=== PATIENT | male | born 1990 | race Caucasian/White ===

== ENCOUNTER 2017-12-01 12:46 | Emergency (ER) | payer MEDICAID | END 2017-12-02 11:14 | disposition home or self-care (01) | LOC: E/R 12-02 11:14 | DX: H60.312 Diffuse otitis externa, left ear (principal); H65.02 Acute serous otitis media, left ear; J00 Acute nasopharyngitis [common cold] | CPT/HCPCS: 99283; Z7502 ==

== ENCOUNTER 2018-02-27 10:34 | Inpatient (IN) | payer MEDICAID ==
[2018-02-27 11:50] LABS: WHITE BLOOD COUNT 28.9 10^3/ul (4.8-10.8)
[2018-02-27 11:50] LABS: ABNORMAL IP MESSAGE 1; HEMATOCRIT 44.4 % (42.0-52.0); HEMOGLOBIN 15.6 g/dl (14.0-18.0); MEAN CORPUSCULAR HEMOGLOBIN 31.6 pg (29.0-33.0); MEAN CORPUSCULAR HGB CONC 35.1 g/dl (32.0-37.0); MEAN CORPUSCULAR VOLUME 90.1 fl (82.0-101.0); MEAN PLATELET VOLUME 11.5 fl (7.4-10.4); PLATELET COUNT 265 10^3/UL (140-415); POSITIVE DIFF @See below; RED BLOOD COUNT 4.93 10^6/ul (4.70-6.10); RED CELL DISTRIBUTION WIDTH 12.4 % (11.5-14.5)
[2018-02-27] MEDS: IBUPROFEN 800 MG TAB PO (11:51)
[2018-02-27] MEDS: ACETAMINOPHEN 325 MG TAB PO (11:51)
[2018-02-27] MEDS: PIPER-TAZO 3.375 GM IV (PMX) 100 ML IVPB ×2 (11:52→18:58)
[2018-02-27 11:53] LABS: ADD MAN DIFF? YES
[2018-02-27] MEDS: SODIUM CHLORIDE 0.9% 1L BAG IV* (11:56)
[2018-02-27 12:10] LABS: ALANINE AMINOTRANSFERASE 109 IU/L (13-69); ALBUMIN 4.8 g/dl (3.3-4.9); ALBUMIN/GLOBULIN RATIO 1.77; ALKALINE PHOSPHATASE 60 IU/L (42-121); AMYLASE 60 U/L (11-123); ANION GAP 19 (8-16); ASPARTATE AMINO TRANSFERASE 50 IU/L (15-46); BILIRUBIN,INDIRECT 0.8 mg/dl (0-1.1); BILIRUBIN,TOTAL 0.8 mg/dl (0.2-1.3); BLOOD UREA NITROGEN 14 mg/dl (7-20); CALCIUM 9.7 mg/dl (8.4-10.2); CARBON DIOXIDE 24 mmol/L (21-31); CHLORIDE 97 mmol/L (97-110); CREATININE 0.68 mg/dl (0.61-1.24); GLUCOSE 147 mg/dl (70-220); LIPASE 45 U/L (23-300); POTASSIUM 4.3 mmol/L (3.5-5.1); SODIUM 136 mmol/L (135-144); TOTAL PROTEIN 7.5 g/dl (6.1-8.1)
[2018-02-27] MEDS: VANCOMYCIN 1 GM (PMX) 250 ML IVPB (12:18)
[2018-02-27 12:26] LABS: LACTIC ACID 2.4 mmol/L (0.5-2.0)
[2018-02-27 12:28] LABS: BAND NEUTROPHILS #M 3.7 10^3/ul (0.0-0.6); BAND NEUTROPHILS % (M) 13 % (0-4); LYMPHOCYTES #M 1.7 10^3/ul (0.8-2.9); LYMPHOCYTES % (M) 6 % (15-51); MONOCYTE #M 1.4 10^3/ul (0.3-0.9); MONOCYTES % (M) 5 % (0-11); PLATELET ESTIMATE NORMAL; REACTIVE LYMPHOCYTES #M 1.1 10^3/ul (0.0-0.0); REACTIVE LYMPHOCYTES% (M) 4 % (0-0); SEG NEUT #M 21.9 10^3/ul (1.6-7.5); SEGMENTED NEUTROPHILS (M) % 72 % (39-77); SMUDGE%M 19 % (0-0)
[2018-02-27 12:34] LABS: INR 0.92; PROTIME 12.4 Sec (11.9-14.9)
[2018-02-27 12:35] LABS: PARTIAL THROMBOPLASTIN TIME 28.9 Sec (25.0-35.0)
[2018-02-27] MEDS ORDERED: ACETAMINOPHEN 325 MG TAB PO (18:00)
[2018-02-27] MEDS ORDERED: ZOLPIDEM 5 MG TAB PO (18:00)
[2018-02-27] MEDS ORDERED: morphine 2 MG INJ IV (18:00)
[2018-02-27] MEDS ORDERED: ONDANSETRON 4 MG INJ IV (18:00)
[2018-02-27] MEDS ORDERED: DOCUSATE SODIUM 100 MG CAP PO (18:00)
[2018-02-27] MEDS ORDERED: MAGNESIUM HYDROXIDE 30ML CUP PO (18:00)
[2018-02-27] MEDS ORDERED: NACL 0.9% 3 ML SYG IV (18:00)
[2018-02-27] MEDS ORDERED: VANCOMYCIN IV PER PHARMACY XX (18:00)
[2018-02-27] MEDS ORDERED: HYDROCODONE/APAP (5/325) TAB PO (18:00)
[2018-02-27] MEDS: INSULIN ASPART [NOVOLOG] 3 ML PEN SC ×3 (19:36→21:00)
[2018-02-27] MEDS: SOD CHLORIDE 0.9% 1,000 ML IV (19:37)
[2018-02-27] MEDS: VANCOMYCIN 2 GM in SOD CHLORIDE 0.9% 500 ML IVPB (20:12)
[2018-02-27] MEDS: INSULIN GLARGINE [LANtus] 3 ML PEN SC (21:28)
[2018-02-27 21:55] LABS: LACTIC ACID 1.3 mmol/L (0.5-2.0)
[2018-02-27 23:15] LABS: LACTIC ACID 1.7 mmol/L (0.5-2.0)
[2018-02-28] MEDS: PIPER-TAZO 3.375 GM IV (PMX) 100 ML IVPB ×5 (00:28→23:33)
[2018-02-28] MEDS: ACCU-CHEK XX (02:00)
[2018-02-28 02:12] LABS: ADD UMIC NO; UR ASCORBIC ACID NEGATIVE (NEGATIVE); UR BILIRUBIN (Dip) NEGATIVE (NEGATIVE); UR BLOOD (Dip) NEGATIVE (NEGATIVE); UR CLARITY CLEAR (CLEAR); UR COLOR STRAW (YELLOW); UR GLUCOSE (Dip) NEGATIVE (NEGATIVE); UR KETONES (Dip) NEGATIVE (NEGATIVE); UR LEUKOCYTE ESTERASE (Dip) NEGATIVE Leu/ul (NEGATIVE); UR NITRITE (Dip) NEGATIVE (NEGATIVE); UR SPECIFIC GRAVITY (Dip) 1.009 (1.003-1.030); UR TOTAL PROTEIN (Dip) NEGATIVE (NEGATIVE); UR UROBILINOGEN (Dip) NEGATIVE (NEGATIVE)
[2018-02-28] MEDS: VANCOMYCIN 1.5 GM in SOD CHLORIDE 0.9% 250 ML IVPB ×3 (03:47→21:18)
[2018-02-28] MEDS: SOD CHLORIDE 0.9% 1,000 ML IV ×2 (03:47→04:30)
[2018-02-28 06:14] LABS: ADD MAN DIFF? NO; HAAIG REFLEX REFLEX FILED
[2018-02-28 06:28] LABS: BASOPHIL # 0.1 10^3/ul (0.0-0.1); BASOPHILS % 0.5 % (0.0-2.0); EOSINOPHILS # 0.1 10^3/ul (0.0-0.5); EOSINOPHILS % 0.4 % (0.0-7.0); HEMATOCRIT 42.1 % (42.0-52.0); HEMOGLOBIN 14.5 g/dl (14.0-18.0); LYMPHOCYTES # 2.2 10^3/ul (0.8-2.9); LYMPHOCYTES % 13.9 % (15.0-51.0); MEAN CORPUSCULAR HEMOGLOBIN 31.3 pg (29.0-33.0); MEAN CORPUSCULAR HGB CONC 34.4 g/dl (32.0-37.0); MEAN CORPUSCULAR VOLUME 90.7 fl (82.0-101.0); MEAN PLATELET VOLUME 11.6 fl (7.4-10.4); MONOCYTE # 0.9 10^3/ul (0.3-0.9); MONOCYTES % 5.5 % (0.0-11.0); NEUTROPHIL # 12.3 10^3/ul (1.6-7.5); NEUTROPHILS % 78.8 % (39.0-77.0); PLATELET COUNT 249 10^3/UL (140-415); RED BLOOD COUNT 4.64 10^6/ul (4.70-6.10); RED CELL DISTRIBUTION WIDTH 12.6 % (11.5-14.5)
[2018-02-28 06:28] LABS: WHITE BLOOD COUNT 15.7 10^3/ul (4.8-10.8)
[2018-02-28 06:56] LABS: ALANINE AMINOTRANSFERASE 81 IU/L (13-69); ALBUMIN 3.7 g/dl (3.3-4.9); ALBUMIN/GLOBULIN RATIO 1.48; ALKALINE PHOSPHATASE 52 IU/L (42-121); ANION GAP 17 (8-16); ASPARTATE AMINO TRANSFERASE 32 IU/L (15-46); BILIRUBIN,INDIRECT 0.2 mg/dl (0-1.1); BILIRUBIN,TOTAL 0.2 mg/dl (0.2-1.3); BLOOD UREA NITROGEN 6 mg/dl (7-20); CALCIUM 9.1 mg/dl (8.4-10.2); CARBON DIOXIDE 24 mmol/L (21-31); CHLORIDE 104 mmol/L (97-110); CREATININE 0.64 mg/dl (0.61-1.24); GLUCOSE 150 mg/dl (70-220); POTASSIUM 4.2 mmol/L (3.5-5.1); SODIUM 141 mmol/L (135-144); TOTAL PROTEIN 6.2 g/dl (6.1-8.1)
[2018-02-28 06:56] LABS: PHOSPHORUS 3.5 mg/dl (2.5-4.9)
[2018-02-28 07:26] LABS: HEPATITIS B SURFACE ANTIGEN NEGATIVE (NEGATIVE)
[2018-02-28 07:44] LABS: HEPATITIS B CORE ANTIBODY NEGATIVE (NEGATIVE); HEPATITIS C VIRAL ANTIBODY NEGATIVE (NEGATIVE)
[2018-02-28 07:46] LABS: HEMOGLOBIN A1C 7.2 % (0-5.9)
[2018-02-28] MEDS: INSULIN ASPART [NOVOLOG] 3 ML PEN SC ×7 (07:55→21:27)
[2018-02-28] MEDS: ENOXAPARIN 40 MG/0.4 ML SYG SC (09:32)
[2018-02-28] MEDS ORDERED: GLUCOSE GEL 15 GRAM TUBE BUCCAL (14:30)
[2018-02-28] MEDS ORDERED: GLUCOSE GEL 15 GRAM TUBE PO ×2 (14:30)
[2018-02-28] MEDS ORDERED: GLUCAGON 1 MG INJ IM (14:30)
[2018-02-28] MEDS ORDERED: DEXTROSE 50% 50 ML SYRINGE IV ×2 (14:30)
[2018-02-28] MEDS ORDERED: morphine LIQ (10 MG/5 ML) CUP PO (16:48)
[2018-02-28] MEDS: INSULIN GLARGINE [LANtus] 3 ML PEN SC (21:28)
[2018-03-01] MEDS: ACCU-CHEK XX (01:58)
[2018-03-01] MEDS: VANCOMYCIN 1.5 GM in SOD CHLORIDE 0.9% 250 ML IVPB (03:49)
[2018-03-01] MEDS: PIPER-TAZO 3.375 GM IV (PMX) 100 ML IVPB ×2 (05:31→11:53)
[2018-03-01 05:37] LABS: ADD MAN DIFF? NO
[2018-03-01 05:41] LABS: BASOPHIL # 0.1 10^3/ul (0.0-0.1); BASOPHILS % 0.8 % (0.0-2.0); EOSINOPHILS # 0.2 10^3/ul (0.0-0.5); EOSINOPHILS % 1.8 % (0.0-7.0); HEMATOCRIT 40.2 % (42.0-52.0); HEMOGLOBIN 13.7 g/dl (14.0-18.0); LYMPHOCYTES # 2.6 10^3/ul (0.8-2.9); LYMPHOCYTES % 19.6 % (15.0-51.0); MEAN CORPUSCULAR HEMOGLOBIN 31.4 pg (29.0-33.0); MEAN CORPUSCULAR HGB CONC 34.1 g/dl (32.0-37.0); MEAN PLATELET VOLUME 11.7 fl (7.4-10.4); MONOCYTE # 1.1 10^3/ul (0.3-0.9); MONOCYTES % 8.7 % (0.0-11.0); NEUTROPHIL # 8.9 10^3/ul (1.6-7.5); PLATELET COUNT 242 10^3/UL (140-415); RED BLOOD COUNT 4.37 10^6/ul (4.70-6.10); RED CELL DISTRIBUTION WIDTH 12.6 % (11.5-14.5)
[2018-03-01 05:41] LABS: WHITE BLOOD COUNT 13.1 10^3/ul (4.8-10.8)
[2018-03-01 06:09] LABS: ANION GAP 14 (8-16); BLOOD UREA NITROGEN 7 mg/dl (7-20); CALCIUM 9.2 mg/dl (8.4-10.2); CARBON DIOXIDE 26 mmol/L (21-31); CHLORIDE 107 mmol/L (97-110); CREATININE 0.68 mg/dl (0.61-1.24); GLUCOSE 177 mg/dl (70-220); POTASSIUM 4.2 mmol/L (3.5-5.1); SODIUM 143 mmol/L (135-144)
[2018-03-01] MEDS: ENOXAPARIN 40 MG/0.4 ML SYG SC (08:25)
[2018-03-01] MEDS: INSULIN ASPART [NOVOLOG] 3 ML PEN SC ×4 (08:26→12:07)
[2018-03-01] MEDS: VANCOMYCIN 1.75 GM in SOD CHLORIDE 0.9% 500 ML IVPB (12:37)
== END 2018-03-01 17:34 | disposition home or self-care (01) | DRG 872 ==
LOC: MS2 02-28 13:55 → E/R 10:34 → TEL 13:47
DX: A41.9 Sepsis, unspecified organism (principal); L03.116 Cellulitis of left lower limb; Z68.41 Body mass index [BMI] 40.0-44.9, adult; E66.9 Obesity, unspecified; E11.9 Type 2 diabetes mellitus without complications; Z79.4 Long term (current) use of insulin
CPT/HCPCS: 71045; 76705; 80048; 80053; 80202; 81003; 82150; 82962; 83036; 83605; 83690; 83735; 84100; 85025; 85610; 85730; 86704; 86709; 86803; 87040; 87086; 87340; 93005; 96365; 96372; 96375; 99291-25

== ENCOUNTER 2018-09-21 09:51 | Inpatient (IN) | payer MEDICAID ==
[2018-09-21 11:11] LABS: ABNORMAL IP MESSAGE 1; HEMATOCRIT 45.9 % (42.0-52.0); HEMOGLOBIN 15.8 g/dl (14.0-18.0); MEAN CORPUSCULAR HEMOGLOBIN 30.9 pg (29.0-33.0); MEAN CORPUSCULAR HGB CONC 34.4 g/dl (32.0-37.0); MEAN CORPUSCULAR VOLUME 89.6 fl (82.0-101.0); MEAN PLATELET VOLUME 12.5 fl (7.4-10.4); PLATELET COUNT 300 10^3/UL (140-415); POSITIVE DIFF @See below; RED BLOOD COUNT 5.12 10^6/ul (4.70-6.10); RED CELL DISTRIBUTION WIDTH 11.9 % (11.5-14.5)
[2018-09-21 11:11] LABS: WHITE BLOOD COUNT 32.4 10^3/ul (4.8-10.8)
[2018-09-21] MEDS: PIPER-TAZO 3.375 GM IV (PMX) 100 ML IVPB (11:18)
[2018-09-21] MEDS: SODIUM CHLORIDE 0.9% 1L BAG IV* (11:18)
[2018-09-21 11:19] LABS: ADD MAN DIFF? YES
[2018-09-21] MEDS: morphine 4 MG/ML VIAL IV (11:19)
[2018-09-21] MEDS: ONDANSETRON 4 MG INJ IV ×2 (11:19→21:46)
[2018-09-21] MEDS: ACETAMINOPHEN 325 MG TAB PO ×3 (11:19→21:45)
[2018-09-21 11:28] LABS: ANION GAP 16 (5-13); BLOOD UREA NITROGEN 8 mg/dl (7-20); CALCIUM 9.9 mg/dl (8.4-10.2); CARBON DIOXIDE 24 mmol/L (21-31); CHLORIDE 97 mmol/L (97-110); CREATININE 0.63 mg/dl (0.61-1.24); Estimated GFR > 60 mL/min (>60); GLUCOSE 221 mg/dl (70-220); POTASSIUM 4.1 mmol/L (3.5-5.1); SODIUM 137 mmol/L (135-144)
[2018-09-21 11:36] LABS: INR 0.89; PROTIME 12.1 Sec (11.9-14.9); PT RATIO 0.9
[2018-09-21 11:37] LABS: PARTIAL THROMBOPLASTIN TIME 25.1 Sec (23.0-35.0)
[2018-09-21 11:39] LABS: TROPONIN-I < 0.012 ng/ml (0.000-0.120)
[2018-09-21] MEDS: CLINDAMYCIN 900 MG/D5W (PMX) 50 ML IVPB (12:10)
[2018-09-21 12:33] LABS: ANISOCYTOSIS 1+ (0-0); BAND NEUTROPHILS #M 5.8 10^3/ul (0.0-0.6); BAND NEUTROPHILS % (M) 18 % (0-4); BASOPHIL #M 0.3 10^3/ul (0.0-0.0); BASOPHILS % (M) 1 % (0-2); LYMPHOCYTES #M 2.5 10^3/ul (0.8-2.9); LYMPHOCYTES % (M) 8 % (15-51); MONOCYTE #M 0.6 10^3/ul (0.3-0.9); MONOCYTES % (M) 2 % (0-11); PLATELET ESTIMATE NORMAL; POIKILOCYTOSIS 1+ (0-0); REACTIVE LYMPHOCYTES #M 0.9 10^3/ul (0.0-0.0); REACTIVE LYMPHOCYTES% (M) 3 % (0-0); SEG NEUT #M 23.9 10^3/ul (1.6-7.5); SEGMENTED NEUTROPHILS (M) % 68 % (39-77); SMUDGE%M 4 % (0-0)
[2018-09-21] MEDS ORDERED: ACETAMINOPHEN 325 MG TAB PO (13:00)
[2018-09-21] MEDS ORDERED: ONDANSETRON 4 MG INJ IV (13:00)
[2018-09-21 13:01] LABS: C-REACTIVE PROTEIN 3.4 mg/dl (0.0-0.9)
[2018-09-21 13:03] LABS: ERYTHROCYTE SEDIMENTATION RATE 9 mm/Hr (0-15)
[2018-09-21] MEDS: VANCOMYCIN 1 GM (PMX) 250 ML IVPB (13:09)
[2018-09-21 13:31] LABS: ADD UMIC NO; UR ASCORBIC ACID NEGATIVE (NEGATIVE); UR BILIRUBIN (Dip) NEGATIVE (NEGATIVE); UR BLOOD (Dip) NEGATIVE (NEGATIVE); UR CLARITY CLEAR (CLEAR); UR COLOR YELLOW (YELLOW); UR GLUCOSE (Dip) NEGATIVE (NEGATIVE); UR KETONES (Dip) NEGATIVE (NEGATIVE); UR LEUKOCYTE ESTERASE (Dip) NEGATIVE Leu/ul (NEGATIVE); UR NITRITE (Dip) NEGATIVE (NEGATIVE); UR SPECIFIC GRAVITY (Dip) 1.011 (1.003-1.030); UR TOTAL PROTEIN (Dip) NEGATIVE (NEGATIVE); UR UROBILINOGEN (Dip) NEGATIVE (NEGATIVE)
[2018-09-21] MEDS ORDERED: ZOLPIDEM 5 MG TAB PO (14:30)
[2018-09-21] MEDS ORDERED: VANCOMYCIN IV PER PHARMACY XX (14:30)
[2018-09-21] MEDS ORDERED: GLUCOSE GEL 15 GRAM TUBE BUCCAL (15:00)
[2018-09-21] MEDS ORDERED: GLUCAGON 1 MG INJ IM (15:00)
[2018-09-21] MEDS ORDERED: GLUCOSE GEL 15 GRAM TUBE PO ×2 (15:00)
[2018-09-21] MEDS ORDERED: DEXTROSE 50% 50 ML SYRINGE IV ×2 (15:00)
[2018-09-21] MEDS: VANCOMYCIN 1 GM 250 ML IVPB (15:25)
[2018-09-21] MEDS: SOD CHLORIDE 0.9% 1,000 ML IV ×2 (15:26→22:30)
[2018-09-21] MEDS: ACCU-CHEK XX ×2 (17:30→21:00)
[2018-09-21] MEDS: metFORMIN 500 MG TAB PO (17:48)
[2018-09-21] MEDS: INSULIN ASPART [NOVOLOG] 3 ML PEN SC ×2 (17:52→21:00)
[2018-09-21 19:02] LABS: LACTIC ACID 2.7 mmol/L (0.5-2.0)
[2018-09-21] MEDS: DOCUSATE SODIUM 100 MG CAP PO (21:43)
[2018-09-21] MEDS: FAMOTIDINE 20 MG TAB PO (21:43)
[2018-09-21] MEDS: VANCOMYCIN HCL 1.25 GM in SOD CHLORIDE 0.9% 250 ML IVPB (21:43)
[2018-09-22] MEDS: IBUPROFEN 600 MG TAB PO (00:08)
[2018-09-22] MEDS ORDERED: IBUPROFEN 600 MG TAB (00:09)
[2018-09-22] MEDS: ACCU-CHEK XX ×5 (02:00→21:39)
[2018-09-22] MEDS: VANCOMYCIN HCL 1.25 GM in SOD CHLORIDE 0.9% 250 ML IVPB ×5 (03:13→23:21)
[2018-09-22 05:25] LABS: ADD MAN DIFF? NO
[2018-09-22 05:35] LABS: ABNORMAL IP MESSAGE 1; BASOPHIL # 0.1 10^3/ul (0.0-0.1); BASOPHILS % 0.4 % (0.0-2.0); HEMATOCRIT 42.4 % (42.0-52.0); HEMOGLOBIN 14.6 g/dl (14.0-18.0); LYMPHOCYTES # 1.7 10^3/ul (0.8-2.9); LYMPHOCYTES % 7.3 % (15.0-51.0); MEAN CORPUSCULAR HEMOGLOBIN 31.4 pg (29.0-33.0); MEAN CORPUSCULAR HGB CONC 34.4 g/dl (32.0-37.0); MEAN CORPUSCULAR VOLUME 91.2 fl (82.0-101.0); MEAN PLATELET VOLUME 11.9 fl (7.4-10.4); MONOCYTE # 0.7 10^3/ul (0.3-0.9); NEUTROPHIL # 20.4 10^3/ul (1.6-7.5); NEUTROPHILS % 88.3 % (39.0-77.0); PLATELET COUNT 255 10^3/UL (140-415); POSITIVE DIFF @See below; RED BLOOD COUNT 4.65 10^6/ul (4.70-6.10); RED CELL DISTRIBUTION WIDTH 12.3 % (11.5-14.5)
[2018-09-22 05:35] LABS: WHITE BLOOD COUNT 23.1 10^3/ul (4.8-10.8)
[2018-09-22 05:46] LABS: LACTIC ACID 1.5 mmol/L (0.5-2.0)
[2018-09-22 05:51] LABS: HEMOGLOBIN A1C 10.2 % (0-5.9)
[2018-09-22 06:10] LABS: ANION GAP 13 (5-13); BLOOD UREA NITROGEN 6 mg/dl (7-20); CALCIUM 8.8 mg/dl (8.4-10.2); CARBON DIOXIDE 26 mmol/L (21-31); CHLORIDE 101 mmol/L (97-110); CHOLESTEROL 86 mg/dl (100-200); Estimated GFR > 60 mL/min (>60); GLUCOSE 214 mg/dl (70-220); HDL CHOLESTEROL 43 mg/dl (30-63); LDL CHOLESTEROL,CALCULATED 22 mg/dl; MAGNESIUM 1.5 mg/dl (1.7-2.5); POTASSIUM 4.4 mmol/L (3.5-5.1); SODIUM 140 mmol/L (135-144); TRIGLYCERIDES 104 mg/dl (0-149)
[2018-09-22] MEDS: SOD CHLORIDE 0.9% 1,000 ML IV ×3 (06:30→22:30)
[2018-09-22] MEDS: FAMOTIDINE 20 MG TAB PO ×2 (08:45→20:12)
[2018-09-22] MEDS: metFORMIN 500 MG TAB PO ×2 (08:45→17:54)
[2018-09-22] MEDS: DOCUSATE SODIUM 100 MG CAP PO ×2 (08:45→20:12)
[2018-09-22] MEDS: INSULIN ASPART [NOVOLOG] 3 ML PEN SC ×4 (08:51→21:34)
[2018-09-22] MEDS: HYDROCODONE/APAP (5/325) TAB PO (13:00)
[2018-09-22] MEDS: HEPARIN 5,000 UNIT/1 ML VIAL SC ×2 (13:23→20:14)
[2018-09-22 13:30] LABS: VANCOMYCIN,TROUGH 15.7 ug/ml (10.0-20.0)
[2018-09-22] MEDS: MAGNESIUM SULFATE 2 GM/50 ML 50 ML IVPB (14:21)
[2018-09-22] MEDS: ONDANSETRON 4 MG INJ IV (14:21)
[2018-09-22] MEDS: ACETAMINOPHEN 325 MG TAB PO (20:11)
[2018-09-22] MEDS: INSULIN GLARGINE [LANTus] (100 UNITS/ML) SYG SC (21:33)
[2018-09-23] MEDS: ACCU-CHEK XX ×5 (01:58→20:40)
[2018-09-23] MEDS ORDERED: ACCU-CHEK XX (02:00)
[2018-09-23 05:10] LABS: ADD MAN DIFF? NO
[2018-09-23] MEDS: VANCOMYCIN HCL 1.25 GM in SOD CHLORIDE 0.9% 250 ML IVPB ×3 (05:18→20:24)
[2018-09-23] MEDS: SOD CHLORIDE 0.9% 1,000 ML IV ×4 (05:19→22:30)
[2018-09-23 05:20] LABS: WHITE BLOOD COUNT 17.1 10^3/ul (4.8-10.8)
[2018-09-23 05:20] LABS: BASOPHIL # 0.1 10^3/ul (0.0-0.1); BASOPHILS % 0.4 % (0.0-2.0); EOSINOPHILS # 0.1 10^3/ul (0.0-0.5); EOSINOPHILS % 0.4 % (0.0-7.0); LYMPHOCYTES # 1.5 10^3/ul (0.8-2.9); MEAN CORPUSCULAR HEMOGLOBIN 31.3 pg (29.0-33.0); MEAN CORPUSCULAR HGB CONC 34.1 g/dl (32.0-37.0); MEAN CORPUSCULAR VOLUME 91.5 fl (82.0-101.0); MONOCYTE # 1.2 10^3/ul (0.3-0.9); MONOCYTES % 6.8 % (0.0-11.0); NEUTROPHIL # 14.1 10^3/ul (1.6-7.5); NEUTROPHILS % 82.2 % (39.0-77.0); PLATELET COUNT 242 10^3/UL (140-415); RED BLOOD COUNT 4.48 10^6/ul (4.70-6.10)
[2018-09-23 05:53] LABS: PHOSPHORUS 2.4 mg/dl (2.5-4.9)
[2018-09-23 05:53] LABS: MAGNESIUM 1.9 mg/dl (1.7-2.5)
[2018-09-23 05:54] LABS: ANION GAP 13 (5-13); BLOOD UREA NITROGEN 5 mg/dl (7-20); CARBON DIOXIDE 24 mmol/L (21-31); CHLORIDE 99 mmol/L (97-110); CREATININE 0.57 mg/dl (0.61-1.24); Estimated GFR > 60 mL/min (>60); GLUCOSE 216 mg/dl (70-220); POTASSIUM 3.9 mmol/L (3.5-5.1); SODIUM 136 mmol/L (135-144)
[2018-09-23] MEDS: metFORMIN 500 MG TAB PO ×2 (08:44→17:20)
[2018-09-23] MEDS: FAMOTIDINE 20 MG TAB PO ×2 (08:44→20:31)
[2018-09-23] MEDS: DOCUSATE SODIUM 100 MG CAP PO ×2 (08:44→20:31)
[2018-09-23] MEDS: INSULIN ASPART [NOVOLOG] 3 ML PEN SC ×7 (08:46→20:33)
[2018-09-23] MEDS: HEPARIN 5,000 UNIT/1 ML VIAL SC ×2 (08:47→20:34)
[2018-09-23] MEDS: POTASSIUM PHOSPHATE 20 MEQ in SOD CHLORIDE 0.9% 250 ML IVPB (15:09)
[2018-09-23] MEDS: INSULIN GLARGINE [LANTus] (100 UNITS/ML) SYG SC (20:34)
[2018-09-24] MEDS: VANCOMYCIN HCL 1.25 GM in SOD CHLORIDE 0.9% 250 ML IVPB ×3 (02:04→13:29)
[2018-09-24] MEDS: ACCU-CHEK XX ×3 (02:07→13:28)
[2018-09-24] MEDS: SOD CHLORIDE 0.9% 1,000 ML IV ×2 (05:54→14:30)
[2018-09-24] MEDS: ACETAMINOPHEN 325 MG TAB PO (05:56)
[2018-09-24 06:02] LABS: ADD MAN DIFF? NO
[2018-09-24 06:07] LABS: WHITE BLOOD COUNT 15.3 10^3/ul (4.8-10.8)
[2018-09-24 06:07] LABS: BASOPHIL # 0.1 10^3/ul (0.0-0.1); BASOPHILS % 0.5 % (0.0-2.0); EOSINOPHILS # 0.1 10^3/ul (0.0-0.5); EOSINOPHILS % 0.5 % (0.0-7.0); HEMATOCRIT 39.7 % (42.0-52.0); HEMOGLOBIN 13.6 g/dl (14.0-18.0); LYMPHOCYTES # 1.8 10^3/ul (0.8-2.9); LYMPHOCYTES % 11.5 % (15.0-51.0); MEAN CORPUSCULAR HEMOGLOBIN 30.8 pg (29.0-33.0); MEAN CORPUSCULAR HGB CONC 34.3 g/dl (32.0-37.0); MEAN PLATELET VOLUME 11.7 fl (7.4-10.4); MONOCYTE # 0.9 10^3/ul (0.3-0.9); MONOCYTES % 6.1 % (0.0-11.0); NEUTROPHIL # 12.3 10^3/ul (1.6-7.5); NEUTROPHILS % 80.2 % (39.0-77.0); PLATELET COUNT 297 10^3/UL (140-415); RED BLOOD COUNT 4.41 10^6/ul (4.70-6.10)
[2018-09-24 06:29] LABS: PHOSPHORUS 3.7 mg/dl (2.5-4.9)
[2018-09-24 06:29] LABS: MAGNESIUM 1.8 mg/dl (1.7-2.5)
[2018-09-24 06:37] LABS: ANION GAP 12 (5-13); BLOOD UREA NITROGEN 5 mg/dl (7-20); CALCIUM 9.2 mg/dl (8.4-10.2); CARBON DIOXIDE 24 mmol/L (21-31); CHLORIDE 102 mmol/L (97-110); CREATININE 0.52 mg/dl (0.61-1.24); Estimated GFR > 60 mL/min (>60); GLUCOSE 212 mg/dl (70-220); POTASSIUM 3.6 mmol/L (3.5-5.1); SODIUM 138 mmol/L (135-144)
[2018-09-24] MEDS: metFORMIN 500 MG TAB PO (08:25)
[2018-09-24] MEDS: INSULIN ASPART [NOVOLOG] 3 ML PEN SC ×4 (08:26→13:31)
[2018-09-24] MEDS: DOCUSATE SODIUM 100 MG CAP PO (08:27)
[2018-09-24] MEDS: HEPARIN 5,000 UNIT/1 ML VIAL SC (08:27)
[2018-09-24] MEDS: FAMOTIDINE 20 MG TAB PO (08:28)
== END 2018-09-24 17:06 | disposition home or self-care (01) | DRG 872 ==
LOC: E/R 09:51 → 2NE 12:47
DX: A41.9 Sepsis, unspecified organism (principal); L03.115 Cellulitis of right lower limb; E11.65 Type 2 diabetes mellitus with hyperglycemia; E66.9 Obesity, unspecified; Z68.39 Body mass index [BMI] 39.0-39.9, adult; Z71.3 Dietary counseling and surveillance; Z79.4 Long term (current) use of insulin
CPT/HCPCS: 36415; 71045; 73590; 80048; 80061; 80202; 81003; 82962; 83036; 83605; 83735; 84100; 84484; 85025; 85610; 85651; 85730; 86140; 87040; 87086; 87400; 93005; 93971; 96374; 96375; 99291-25

== ENCOUNTER 2018-11-23 14:25 | Emergency (ER) | payer MEDICAID ==
[2018-11-23 18:05] LABS: ADD MAN DIFF? NO
[2018-11-23 18:06] LABS: WHITE BLOOD COUNT 11.7 10^3/ul (4.8-10.8)
[2018-11-23 18:06] LABS: ADD UMIC YES; BASOPHIL # 0.1 10^3/ul (0.0-0.1); BASOPHILS % 0.7 % (0.0-2.0); EOSINOPHILS # 0.2 10^3/ul (0.0-0.5); EOSINOPHILS % 1.8 % (0.0-7.0); HEMATOCRIT 44.8 % (42.0-52.0); HEMOGLOBIN 14.8 g/dl (14.0-18.0); LYMPHOCYTES # 2.8 10^3/ul (0.8-2.9); LYMPHOCYTES % 23.8 % (15.0-51.0); MEAN CORPUSCULAR HEMOGLOBIN 30.4 pg (29.0-33.0); MEAN PLATELET VOLUME 11.5 fl (7.4-10.4); MONOCYTE # 0.6 10^3/ul (0.3-0.9); MONOCYTES % 5.4 % (0.0-11.0); NEUTROPHIL # 7.8 10^3/ul (1.6-7.5); NEUTROPHILS % 67.2 % (39.0-77.0); PLATELET COUNT 335 10^3/UL (140-415); RED BLOOD COUNT 4.87 10^6/ul (4.70-6.10); RED CELL DISTRIBUTION WIDTH 12.4 % (11.5-14.5); UR ASCORBIC ACID NEGATIVE (NEGATIVE); UR BILIRUBIN (Dip) NEGATIVE (NEGATIVE); UR BLOOD (Dip) NEGATIVE (NEGATIVE); UR CLARITY CLEAR (CLEAR); UR COLOR YELLOW (YELLOW); UR GLUCOSE (Dip) 3+ mg/dL (NEGATIVE); UR KETONES (Dip) TRACE mg/dL (NEGATIVE); UR LEUKOCYTE ESTERASE (Dip) NEGATIVE Leu/ul (NEGATIVE); UR MUCUS FEW /HPF (NONE SEEN); UR NITRITE (Dip) NEGATIVE (NEGATIVE); UR RBC 2 /HPF (0-5); UR SPECIFIC GRAVITY (Dip) 1.031 (1.003-1.030); UR TOTAL PROTEIN (Dip) 1+ mg/dl (NEGATIVE); UR UROBILINOGEN (Dip) NEGATIVE (NEGATIVE); UR WBC 4 /HPF (0-5)
[2018-11-23 18:25] LABS: ALANINE AMINOTRANSFERASE 65 IU/L (13-69); ALBUMIN 4.5 g/dl (3.3-4.9); ALKALINE PHOSPHATASE 69 IU/L (42-121); ANION GAP 13 (5-13); ASPARTATE AMINO TRANSFERASE 36 IU/L (15-46); BILIRUBIN,INDIRECT 0.3 mg/dl (0-1.1); BILIRUBIN,TOTAL 0.3 mg/dl (0.2-1.3); BLOOD UREA NITROGEN 12 mg/dl (7-20); CARBON DIOXIDE 25 mmol/L (21-31); CHLORIDE 102 mmol/L (97-110); CREATININE 0.47 mg/dl (0.61-1.24); Estimated GFR > 60 mL/min (>60); GLUCOSE 239 mg/dl (70-220); LIPASE 22 U/L (23-300); POTASSIUM 4.2 mmol/L (3.5-5.1); SODIUM 140 mmol/L (135-144); TOTAL PROTEIN 7.5 g/dl (6.1-8.1)
[2018-11-23 19:34] LABS: HEMOGLOBIN A1C 9.4 % (0-5.9)
== END 2018-11-23 20:05 | disposition home or self-care (01) ==
LOC: FTE 14:25
DX: K21.9 Gastro-esophageal reflux disease without esophagitis (principal); E11.9 Type 2 diabetes mellitus without complications; Z79.4 Long term (current) use of insulin; Z87.891 Personal history of nicotine dependence
CPT/HCPCS: 80053; 81001; 83036; 83690; 85025; 87086; 99283